=== PATIENT | female | born 1950 | race Caucasian/White ===

== ENCOUNTER → 2016-11-22 | Outpatient (CLI) | payer MEDICARE, OTHER ==
[~2016-11-22] MED LIST: DICLOFENAC50 MG PO; FISH OIL500 MG PO; IMIPRAMINE25 MG PO; LIPITOR; LISINOPRIL20 MG PO; ULTRAM50 MG PO; VALIUM 10MG10 MG/TAB PO; VITAMIN D1000 IU PO; VOLTAREN-XR100 MG PO; [UNRECOGNIZED DRUG - OTHER]; maxide
== END ==
LOC: MC.RAD 14:02
DX: Z12.31 Encounter for screening mammogram for malignant neoplasm of breast (principal)

== ENCOUNTER → 2018-01-16 | Outpatient (CLI) | payer MEDICARE, OTHER | LOC: MC.RAD 12-30 13:40 | DX: Z12.31 Encounter for screening mammogram for malignant neoplasm of breast (principal) ==

== ENCOUNTER 2018-07-24 13:00 | Outpatient (RCR) | payer MEDICARE, OTHER | END 2018-07-29 | disposition home or self-care (01) | LOC: WSPT | DX: M25.561 Pain in right knee (principal); Z96.651 Presence of right artificial knee joint | CPT/HCPCS: G8978-GP; G8979-GP ==

== ENCOUNTER 2018-11-05 13:30 | Outpatient (RCR) | payer MEDICARE, OTHER | END 2018-11-11 | disposition home or self-care (01) | LOC: WSPT | DX: M47.812 Spondylosis without myelopathy or radiculopathy, cervical region (principal); M47.816 Spondylosis without myelopathy or radiculopathy, lumbar region; E66.01 Morbid (severe) obesity due to excess calories; Z68.37 Body mass index [BMI] 37.0-37.9, adult; Z79.82 Long term (current) use of aspirin; Z79.891 Long term (current) use of opiate analgesic; Z79.899 Other long term (current) drug therapy | CPT/HCPCS: G8978-GP; G8979-GP ==

== ENCOUNTER 2018-12-17 15:15 | Outpatient (RCR) | payer MEDICARE, OTHER | END 2019-01-07 10:51 | disposition home or self-care (01) | LOC: WSPT 15:15 | DX: M47.812 Spondylosis without myelopathy or radiculopathy, cervical region (principal) ==

== ENCOUNTER → 2019-04-02 | Outpatient (CLI) | payer MEDICARE, OTHER | LOC: MC.RAD 14:07 | DX: Z12.31 Encounter for screening mammogram for malignant neoplasm of breast (principal); E11.69 Type 2 diabetes mellitus with other specified complication ==

== ENCOUNTER → 2020-04-04 | Outpatient (CLI) | payer MEDICARE, OTHER | LOC: MC.RAD 13:28 | DX: Z12.31 Encounter for screening mammogram for malignant neoplasm of breast (principal) ==

== ENCOUNTER 2020-07-28 08:15 | Outpatient (RCR) | payer MEDICARE, OTHER | END 2020-10-13 | disposition home or self-care (01) | LOC: WSC | DX: H81.13 Benign paroxysmal vertigo, bilateral (principal) ==

== ENCOUNTER 2021-01-05 08:30 | Outpatient (RCR) | payer MEDICARE, OTHER | END 2021-02-07 | LOC: WSPT | DX: M25.571 Pain in right ankle and joints of right foot (principal) ==

== ENCOUNTER → 2021-01-17 | Outpatient (CLI) | payer MEDICARE, OTHER | LOC: COL.RAD 08:54 | DX: M19.071 Primary osteoarthritis, right ankle and foot (principal); M19.072 Primary osteoarthritis, left ankle and foot; Z98.890 Other specified postprocedural states; Z87.81 Personal history of (healed) traumatic fracture | CPT/HCPCS: A9503 ==

== ENCOUNTER → 2021-07-20 | Outpatient (CLI) | payer MEDICARE, OTHER | LOC: MC.RAD 06-21 13:15 | DX: Z12.31 Encounter for screening mammogram for malignant neoplasm of breast (principal) ==

== ENCOUNTER → 2022-08-08 | Outpatient (CLI) | payer MEDICARE, OTHER | LOC: MHCPAIN 14:12 | DX: M47.896 Other spondylosis, lumbar region (principal); M54.16 Radiculopathy, lumbar region; M16.12 Unilateral primary osteoarthritis, left hip | CPT/HCPCS: G0463 ==

== ENCOUNTER → 2022-12-13 | Outpatient (CLI) | payer MEDICARE, OTHER | LOC: MHCPAIN 11:01 | DX: M47.817 Spondylosis without myelopathy or radiculopathy, lumbosacral region (principal); M54.50 Low back pain, unspecified ==

== ENCOUNTER → 2023-11-05 | Outpatient (CLI) | payer MEDICARE, OTHER | LOC: MHCPAIN 12:03 | DX: M48.061 Spinal stenosis, lumbar region without neurogenic claudication (principal); M47.816 Spondylosis without myelopathy or radiculopathy, lumbar region | CPT/HCPCS: G0463 ==

== ENCOUNTER → 2024-01-08 | Outpatient (CLI) | payer MEDICARE, OTHER | LOC: MHCPAIN 14:02 | DX: M48.062 Spinal stenosis, lumbar region with neurogenic claudication (principal); M16.12 Unilateral primary osteoarthritis, left hip; M54.50 Low back pain, unspecified | CPT/HCPCS: G0463 ==

== ENCOUNTER → 2024-03-30 | Outpatient (CLI) | payer MEDICARE, OTHER | LOC: MHCPAIN 14:57 | DX: M47.816 Spondylosis without myelopathy or radiculopathy, lumbar region (principal); M48.062 Spinal stenosis, lumbar region with neurogenic claudication; M25.552 Pain in left hip | CPT/HCPCS: G0463 ==

== ENCOUNTER → 2024-07-20 | Outpatient (CLI) | payer MEDICARE, OTHER ==
[~2024-07-20] MED LIST changes: +Atropine 1 MG/10 ML SYRINGE IV ONE; +Glycopyrrolate 0.2 MG/ML 1 ML VIAL ONE; +ePHEDrine 50 MG/10 ML VIAL IV ONE
== END ==
LOC: MHCPAIN 07:46
DX: M47.817 Spondylosis without myelopathy or radiculopathy, lumbosacral region (principal); M54.16 Radiculopathy, lumbar region; M54.50 Low back pain, unspecified; M48.061 Spinal stenosis, lumbar region without neurogenic claudication
CPT/HCPCS: J0461; J0665

== ENCOUNTER → 2024-07-29 | Outpatient (CLI) | payer MEDICARE, OTHER ==
[~2024-07-29] MED LIST changes: -Atropine 1 MG/10 ML SYRINGE IV ONE; -Glycopyrrolate 0.2 MG/ML 1 ML VIAL ONE; -ePHEDrine 50 MG/10 ML VIAL IV ONE
== END ==
LOC: MHCPAIN 09:16
DX: M43.16 Spondylolisthesis, lumbar region (principal); M47.816 Spondylosis without myelopathy or radiculopathy, lumbar region; M48.061 Spinal stenosis, lumbar region without neurogenic claudication; M53.3 Sacrococcygeal disorders, not elsewhere classified; M16.12 Unilateral primary osteoarthritis, left hip
CPT/HCPCS: G0463